=== PATIENT | male | born 1955 | race Caucasian/White ===

== ENCOUNTER 2017-08-12 10:00 | Outpatient (CLI) | payer OTHER ==
[~2017-08-12] VITALS: Ht 175.3 cm; Wt 68.9 kg
[~2017-08-12 10:00] MED LIST: ASPI-983 PO; ASPI-999 PO; ATOR20TA66 PO; BIOF1TAB6 PO; CEFD300C3 PO; CLOP75TA28 PO; FOLI-88 PO; MECL25TA56 PO; METO-270 PO; MULT-35 PO; OMEG1CAP72 PO
[2017-08-12] MEDS ORDERED: CLOP75TA28 PO (10:44)
[2017-08-12] MEDS ORDERED: ASPI-586 PO (10:44)
[2017-08-12] MEDS ORDERED: ATOR20TA66 PO (10:44)
== END 2017-08-12 10:52 | disposition home or self-care (01) ==
LOC: PREOP 10:00
PROVIDERS: ATTEND Surgery
DX: Z01.818 Encounter for other preprocedural examination (principal); Z12.11 Encounter for screening for malignant neoplasm of colon

== ENCOUNTER 2017-08-15 10:55 | Day surgery (SDC) | payer OTHER ==
[~2017-08-15] VITALS: Ht 175.3 cm; Wt 68.9 kg
[~2017-08-15 10:55] MED LIST changes: +ASPI-586 PO
[2017-08-15] MEDS ORDERED: MIDAZOLAM 2 MG/2 ML (VERSED) VIAL IVP PRN (11:00)
[2017-08-15] MEDS ORDERED: fentaNYL INJECTION 100 MCG/2 ML AMP IVP PRN (11:00)
[2017-08-15] MEDS ORDERED: NS IV 500 ML 500 ML IV PRN (11:00)
[2017-08-15 11:10] VITALS: BP 127/68
[2017-08-15] MEDS ORDERED: fentaNYL INJECTION 100 MCG/2 ML AMP ONE (13:00)
[2017-08-15] MEDS ORDERED: MIDAZOLAM 2 MG/2 ML (VERSED) VIAL ONE ×3 (13:00)
--- NOTE | 2017-08-15 13:12 | History & Physicial ---
History of Present Illness History of Present Illness Reason for visit/HPI To undergo screening colonoscopy. Sister with polyps Date of Admission Date Seen by Provider: Aug 15, 2017 Time Seen by Provider: 13:07 I consulted on this patient on 08/15/17 13:06 Attending Physician Alex Low MD Admitting Physician Felton Hussein DO Consult Allergies and Home Medications Allergies Coded Allergies: No Known Drug Allergies (Unverified , 01/03/13) Home Medications Aspirin 81 Mg Tablet.dr, 81 MG PO DAILY, (Reported) Atorvastatin Calcium 20 Mg Tablet, 10 MG PO DAILY, (Reported) Clopidogrel Bisulfate 75 Mg Tablet, 75 MG PO every other day, (Reported) Multivitamin 1 Each Tablet, 1 TAB PO DAILY, (Reported) [place]-3/Dha/Epa/Fish Oil 1 Each Capsule, 1 CAP PO DAILY, (Reported) Past Sojavbz-Zaholh-Imjaal Hx Patient Social History Marrital Status: Employed/Student: employed Alcohol Use: Rarely Uses Recreational Drug Use: No Smoking Status: Never a Smoker Recent Foreign Travel: No Contact w/other who traveled: No Recent Hopitalizations: No Recent Infectious Disease Expo: No Immunizations Up To Date Tetanus Booster (TDap): Unknown Date of Influenza Vaccine: Jul 25, 2017 Seasonal Allergies Seasonal Allergies: Yes Surgeries Yes Coronary Stent Respiratory No Cardiovascular Yes Coronary Artery Disease Neurological No Reproductive System Hx Reproductive Disorders: No Sexually Transmitted Disease: No HIV/AIDS: No Gastrointestinal Yes Hemorrhoids Musculoskeletal No Endocrine History of Endocrine Disorders: No HEENT History of HEENT Disorders: No Cancer No Did You Recieve Any Treatments: No Psychosocial History of Psychiatric Problem: No Integumentary History of Skin or Integumenta: No Blood Transfusions History of Blood Disorders: No Adverse Reaction to a Blood Tr: No Family Medical History Significant Family History: No Pertinent Family Hx Constitutional: no symptoms reported EENTM: no symptoms reported Respiratory: no symptoms reported Cardiovascular: no symptoms reported Gastrointestinal: no symptoms reported Genitourinary: no symptoms reported Musculoskeletal: no symptoms reported Skin: no symptoms reported Psychiatric/Neurological: No Symptoms Reported Physical Exam Vital Signs Vital Sign - Last 12Hours 08/15/17 11:10 Temp 98.1 Pulse 68 Resp 20 B/P (MAP) 127/68 Pulse Ox 99 O2 Delivery Room Air Capillary Refill : General Appearance: No Apparent Distress HEENT: Normal ENT Inspection Neck: Normal Inspection Respiratory: Lungs Clear Gastrointestinal: Non Tender, Soft Rectal: Deferred Back: Normal Inspection Extremity: Normal Inspection Neurologic/Psychiatric: Alert, Oriented x3 Skin: Warm/Dry Assessment/Plan Assessment and Plan gentleman for screening colonoscopy. Polypectomy, diverticulosis, post polypectomy bleeding, iatrogenic perforation etc. discussed thoroughly. Seems to be in agreement to proceed Problems: ALEX LOW MD Aug 15, 2017 1:12 pm
--- NOTE | 2017-08-15 13:15 | Conscious Sedation/ASA ---
Conscious Sedation Pre-Proced Time Reviewed: 12:55 ASA Class: 2 Airway Mallampati Classification: ([place] appropriate class) I. II. III, IV Lungs Heart ASA score ASA 1: a normal healthy patient ASA 2: a patient with a mild systemic disease (mid diabetes, controlled hypertension, obesity ASA 3: a patient with a severe systemic disease that limits activity (angina , COPD, prior Myocardial infarction) ASA 4: a patient with an incapacitating disease that is a constant threat to life (CHF, renal failure) ASA 5: a moribund patient not expected to survive 24 hrs. (ruptured aneurysm) ASA 6: a declared brain patient whose organs are being harvested. For emergent operations, add the letter E after the classification Grade 1 Sedation Plan: Discussed options with patient/fam Note The patient is an appropriate candidate to undergo the planned procedure, sedation, and anesthesia. The patient immediately re-assessed prior to indication. ALEX LOW MD Aug 15, 2017 1:14 pm
--- NOTE | 2017-08-15 13:42 | Endo Procedure Record ---
Endo Procedure Report Date of Procedure Aug 15, 2017 Surgeon (s) ALEX LWO MD Post Procedure/Op Diagnosis poor bowel prep. No polyps Procedure Performed colonoscopy to cecum Description of Procedure Anesthesia Type: Conscious Sedation Specimen(s) collected/removed none Description of the Procedure Indication for procedure: This gentleman came in for screening colonoscopy. His sister has just been found to have polyps. Informed consent was obtained after reviewing the procedure in detail Description of the procedure: He was placed in left lateral decubitus position and his vital signs were monitored. Conscious sedation was achieved using Versed and fentanyl. Examination of the perianal area revealed skin tags and a minimal degree of external hemorrhoids. Digital rectal examination was otherwise unremarkable. The colonoscope was then introduced in the rectum and advanced all the way up to the cecum. The quality of bowel preparation was rather poor. The scope was then withdrawn slowly and the mucosa examined in a systematic fashion. There was no obvious polyp He tolerated the procedure well and was taken back to the nursing area in a stable condition Impression: Screening colonoscopy. No polyps. Recommend repeating in 5 years Copies To: PAVEL LUKE XAVIER M MD Aug 15, 2017 1:42 pm
--- NOTE | 2017-08-15 13:44 | Discharge Inst-Simple/Standard ---
Discharge Inst-Standard Discharge Medications New, Converted or Re-Newed RX: Other Patient Instructions/Follow Up Plan of Care/Instructions/FU: Johnie colonoscopy in 5 years Activity as Tolerated: Yes Discharge Diet: No Restrictions ALEX LOW MD Aug 15, 2017 1:44 pm
[2017-08-15 13:55] VITALS: BP 109/77
[2017-08-15 14:30] VITALS: BP 123/74
[2017-08-15 14:50] VITALS: BP 123/74
== END 2017-08-15 14:50 | disposition home or self-care (01) ==
LOC: ENDO 10:55
PROVIDERS: ATTEND Surgery
DX: Z12.11 Encounter for screening for malignant neoplasm of colon (principal); Z83.71 Family history of colonic polyps; I25.10 Atherosclerotic heart disease of native coronary artery without angina pectoris; Z95.5 Presence of coronary angioplasty implant and graft

== ENCOUNTER → 2019-09-11 | Outpatient (CLI) | payer OTHER ==
[~2019-09-11] MED LIST changes: -METO-270 PO; +METO-387 PO
--- NOTE | 2019-09-11 16:42 | Diagnostic Imaging Report ---
INDICATION: Low back pain. TIME OF EXAM: 12:02 p.m. Multiple views of the lumbar spine were obtained. FINDINGS: There is some straightening of the normal lumbar lordotic curvature. Vertebral body heights are well maintained. No compression fracture is seen. There is mild generalized degenerative disc disease with variable disc space narrowing noted. No definite spondylolysis or spondylolisthesis is seen. IMPRESSION: Mild lumbar spondylosis. No acute bony abnormality is detected. Dictated by: Dictated on workstation # [id number]
== END ==
LOC: RAD 11:17
PROVIDERS: ATTEND Internal Medicine
DX: M99.04 Segmental and somatic dysfunction of sacral region (principal); M99.03 Segmental and somatic dysfunction of lumbar region; M47.816 Spondylosis without myelopathy or radiculopathy, lumbar region
CPT/HCPCS: 72110

== ENCOUNTER → 2019-10-03 | Outpatient (CLI) | payer OTHER ==
--- NOTE | 2019-10-03 15:18 | Diagnostic Imaging Report ---
EXAMINATION: MRI lumbar spine without contrast, 10/03/2019. TECHNIQUE: Multiplanar, multisequence MRI of the lumbar spine was performed without contrast. INDICATION: Low back pain, history of heavy lifting. COMPARISON: Correlation made to lumbar spine radiographs from 09/11/2019. FINDINGS: Alignment is preserved, and no fracture or subluxations appreciated. Tip of the conus is unremarkable in positioning. 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 There are multifocal T1 and T2 hyperintensities within the vertebral bodies, which are no longer seen on the T2 fat-saturated sequence, most consistent with hemangiomas. Multifocal Schmorl's nodes seen along the endplates in the lower lumbar region. L1-L2: No central or neural foraminal stenosis is appreciated. No significant bulging disc material is seen. L2-L3: There is bilateral facet and ligamentum flavum hypertrophy. No central narrowing. Mild bilateral neural foraminal stenosis is also seen. L3-L4: There is intervertebral disc space narrowing, disc desiccation, and a right paracentral broad-based bulging disc. Bilateral facet and ligamentum flavum hypertrophy is noted. There is flattening of the ventral thecal sac. No central stenosis is appreciated. There is bilateral narrowing of the neural foramina, which appears mild to moderate. L4-L5: There is bilateral facet and ligamentum flavum hypertrophy. There is intervertebral disc space narrowing and disc desiccation. There is a broad-based right paracentral bulging disc with secondary mild central stenosis. There is bilateral moderate neural foraminal narrowing. L5-S1: There is intervertebral disc space narrowing and disc desiccation with a central disc protrusion. This contains a small annular tear. Bilateral facet hypertrophy noted. There is some narrowing of the left lateral recess, but no definite nerve root encroachment is seen; correlate with symptoms. No significant central narrowing. There is bilateral neural foraminal narrowing, mild on the right and moderate on the left. The visualized intra-abdominal structures are unremarkable. IMPRESSION: 1. Multilevel degenerative findings; see above description. 2. Incidental note made of an elongated-appearing lipoma of the filum terminale. This is considered an incidental finding, likely of no significance. Dictated by: Dictated on workstation # [id number]
== END ==
LOC: RAD 13:35
PROVIDERS: ATTEND Internal Medicine
DX: M46.07 Spinal enthesopathy, lumbosacral region (principal); M51.37 Other intervertebral disc degeneration, lumbosacral region; M48.07 Spinal stenosis, lumbosacral region; M51.26 Other intervertebral disc displacement, lumbar region; M51.46 Schmorl's nodes, lumbar region; Z87.828 Personal history of other (healed) physical injury and trauma
CPT/HCPCS: 72148

== ENCOUNTER → 2019-11-13 | Outpatient (RCR) | payer OTHER ==
[~2019-11-13] MED LIST changes: +CYCL10TA9 PO; -METO-387 PO; +MTP25TSR PO
== END | disposition home or self-care (01) ==
PROVIDERS: ATTEND Internal Medicine
DX: M62.838 Other muscle spasm (principal)

== ENCOUNTER 2019-11-14 00:24 | Emergency (ER) | payer OTHER ==
[~2019-11-14] VITALS: Ht 175 cm; Wt 68.0 kg
[~2019-11-14 00:24] MED LIST changes: -CYCL10TA9 PO
--- NOTE | 2019-11-14 00:44 | ED Back Pain ---
General Chief Complaint: Back Problems Stated Complaint: BACK & LEG PAIN Source of Information: Patient, Family Exam Limitations: No Limitations History of Present Illness Date Seen by Provider: Nov 14, 2019 Time Seen by Provider: 00:27 Initial Comments Patient presents to the ER by private conveyance for episodic worsening of low back pain in his L4-L5 region with right sided sciatic pain radiating down the back of his thigh. He went to physical therapy for this is been going on for the past several months today and they thought maybe it was more his SI joint. He has not been on steroids. He does have a history of a stent several years ago and is on Plavix. He follows with Dr. Luke and has had imaging of his back including MRI which showed degenerative disc disease. He is not having any saddle anesthesia, loss of control of bowel or bladder, falls or weakness. He does feel that his back is in spasm. He took 2 Aleve about 3 hours ago with only marginal relief. 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 Allergies and Home Medications Allergies Coded Allergies: No Known Drug Allergies (Unverified , 01/03/13) Home Medications Aspirin 81 Mg Tablet.dr, 81 MG PO DAILY, (Reported) Atorvastatin Calcium 20 Mg Tablet, 10 MG PO DAILY, (Reported) Clopidogrel Bisulfate 75 Mg Tablet, 75 MG PO every other day, (Reported) Cyclobenzaprine HCl 10 Mg Tablet, 10 MG PO Q8H PRN for SPASMS Prescribed by: SUKHWINDER HAZEL on 11/14/19 0046 Multivitamin 1 Each Tablet, 1 TAB PO DAILY, (Reported) [place]-3/Dha/Epa/Fish Oil 1 Each Capsule, 1 CAP PO DAILY, (Reported) Patient Home Medication List Home Medication List Reviewed: Yes Review of Systems Constitutional: No chills, No diaphoresis EENTM: No ear discharge, No ear pain Respiratory: No cough, No short of breath Cardiovascular: No chest pain, No edema Gastrointestinal: No abdominal pain, No constipation, No nausea, No vomiting Genitourinary: No discharge, No dysuria Musculoskeletal: see HPI, back pain; No joint pain Skin: No change in color, No change in hair/nails Past Mmrvhih-Brpcls-Sacbcy Hx Patient Social History Alcohol Use: Denies Use Recreational Drug Use: No Smoking Status: Never a Smoker Recent Foreign Travel: No Contact w/Someone Who Travel: No Recent Hopitalizations: No Immunizations Up To Date Tetanus Booster (TDap): Unknown Date of Influenza Vaccine: Jul 25, 2017 Seasonal Allergies Seasonal Allergies: Yes Past Medical History Surgeries: Yes Coronary Stent Respiratory: No Cardiac: Yes Coronary Artery Disease Neurological: No Reproductive Disorders: No Sexually Transmitted Disease: No HIV/AIDS: No Gastrointestinal: Yes Hemorrhoids Musculoskeletal: No Endocrine: No HEENT: No Cancer: No Did You Recieve Any Treatments: No Psychosocial: No Integumentary: No Blood Disorders: No Adverse Reaction/Blood Tranf: No Family Medical History No Pertinent Family Hx Physical Exam Vital Signs Vital Signs - First Documented 11/14/19 00:32 Pulse 98 Resp 18 B/P (MAP) 140/88 (105) Pulse Ox 97 O2 Delivery Room Air Capillary Refill : Height, Weight, BMI Height: 5'9.00" Weight: 152lbs. 0.0oz. 68.195884im; 22.5 BMI Method:Stated General Appearance: WD/WN, Mild Distress HEENT: PERRL/EOMI, Normal ENT Inspection, Pharynx Normal, Moist Mucous Membranes Neck: Full Range of Motion, Normal Inspection, Non Tender Cardiovascular: Regular Rate, Rhythm, No Edema, Normal Peripheral Pulses Respiratory: No Accessory Muscle Use, No Respiratory Distress Back: Normal Inspection, No CVA Tenderness, Vertebral Tenderness (lumbar spine with paraspinous muscle tenderness to palpation right worse than left.), Other (point tenderness over the L5/ S1 facet joint) Neurologic/Psychiatric: Alert, Oriented x3, No Motor/Sensory Deficits, Normal Mood/Affect Skin: Normal Color, Warm/Dry Procedures/Interventions Progress Site was cleaned thoroughly with chlorhexidine and alcohol and located as the L5-S1 facet joint and source of his pain. We injected 1 cc of 2% lidocaine with epinephrine, 1 cc of half percent bupivacaine and 1 cc of 40 mg Depo-Medrol around the site of his greatest pain. Patient tolerated procedure well, did not bleed and a Band-Aid was applied. Progress/Results/Core Measures Results/Orders My Orders Orders - SUKHWINDER HAZEL Methylprednisolone Acetate Inj (Depo-Med (11/14/19 00:45) Bupivacaine 0.5% Injection (Sensorcaine (11/14/19 00:45) Orphenadrine Injection (Norflex Injectio (11/14/19 00:45) Medications Given in ED Current Medications Medications Dose Ordered Sig/Tl Route Start Time Stop Time Status Last Admin Dose Admin Bupivacaine HCl 30 ml ONCE ONCE INJ 11/14/19 00:45 11/14/19 00:46 DC 11/14/19 00:51 30 ML Methylprednisolone Acetate 40 mg ONCE ONCE IA 11/14/19 00:45 11/14/19 00:46 DC 11/14/19 00:52 40 MG Orphenadrine Citrate 60 mg ONCE ONCE IM 11/14/19 00:45 11/14/19 00:46 DC 11/14/19 00:51 60 MG Vital Signs/I&O 11/14/19 00:32 Pulse 98 Resp 18 B/P (MAP) 140/88 (105) Pulse Ox 97 O2 Delivery Room Air Progress Progress Note : Time: 00:42 Progress Note Lumbago with sciatica. No red flag signs and is had imaging. No surgeries. Not diabetic. Plan to give him a shot of 2% epinephrine and lidocaine, half percent bupivacaine and Depo-Medrol 40 mg point tenderness at the L5-S1 facet joint to help cover his sciatic pain. Plan to give him Norflex. Put him out on cyclobenzaprine with follow-up with the primary care office. Departure Impression Primary Impression: Lumbago with sciatica, right side Qualified Codes: M54.41 - Lumbago with sciatica, right side Disposition: 01 HOME, SELF-CARE Condition: Stable Departure-Patient Inst. Decision time for Depature: 00:57 Referrals: PAVEL LUKE DO (PCP/Family) Primary Care Physician Patient Instructions: Sciatica Exercises, Low Back Pain (DC) Add. Discharge Instructions: Wear a back brace on the days that it helps. Heating pads applied over your back and be helpful. SalonPas, icy hot, Biofreeze etc. applied topically as needed. Continue taking Tylenol 1000 g every 8 hours as needed for pain. Continue taking the Aleve 2 capsules twice daily on a scheduled basis for the next week. If you have muscle spasms in your back you may take one tablet of the cyclobenzaprine/Flexeril every 8 hours as needed. Flexeril may cause drowsiness and increased risk of falls. Follow-up with primary care office as necessary for pain relief. All discharge instructions reviewed with patient and/or family. Voiced understanding. Scripts Cyclobenzaprine HCl (Cyclobenzaprine HCl) 10 Mg Tablet 10 MG PO Q8H PRN for SPASMS, #15 TAB 0 Refills Prov: SUKHWINDER HAZEL 11/14/19 SUKHWINDER HAZEL Nov 14, 2019 00:44
[2019-11-14] MEDS ORDERED: ORPHENADRINE 60 MG/2 ML (NORFLEX) AMP IM ONE (00:45)
[2019-11-14] MEDS ORDERED: BUPIVACAINE 0.5% 30 ML (SENSORCAINE) VIAL INJ ONE (00:45)
[2019-11-14] MEDS ORDERED: methylPREDNISolone 40 MG/ML (DEPO MEDROL) VIAL IA ONE (00:45)
[2019-11-14] MEDS ORDERED: CYCL10TA9 PO (00:46)
[2019-11-14 01:07] VITALS: BP 140/88
== END 2019-11-14 01:10 | disposition home or self-care (01) ==
LOC: EDUNIT# 00:24 → ER 00:26
DX: M54.41 Lumbago with sciatica, right side (principal); I25.10 Atherosclerotic heart disease of native coronary artery without angina pectoris; Z95.5 Presence of coronary angioplasty implant and graft; Z79.02 Long term (current) use of antithrombotics/antiplatelets; Z79.82 Long term (current) use of aspirin
CPT/HCPCS: 99284

== ENCOUNTER 2019-12-06 14:29 | Outpatient (RCR) | payer OTHER ==
[~2019-12-06 14:29] MED LIST changes: +CYCL10TA9 PO
== END 2020-01-15 11:08 | disposition home or self-care (01) ==
PROVIDERS: ATTEND Internal Medicine
DX: M62.838 Other muscle spasm (principal); M54.41 Lumbago with sciatica, right side

== ENCOUNTER → 2021-01-15 | Outpatient (CLI) | payer OTHER ==
[~2021-01-15] MED LIST changes: +ASPI-1238 PO; -ASPI-983 PO
== END ==
LOC: CARD 08:00
PROVIDERS: ATTEND Internal Medicine Cardiovascular Disease
DX: I25.10 Atherosclerotic heart disease of native coronary artery without angina pectoris (principal)